=== PATIENT | female | born 1995 | race Two or more races ===

== ENCOUNTER 2025-04-07 05:40 | Observation (INO) | payer OTHER, SELFPAY ==
[2025-04-07] VITALS (19 sets, daily range): BP systolic 97–104; BP diastolic 56–59; PULSE 70–81; RESP 17–98; TEMP 36.7; O2SAT 98–100; BMI 24.5
--- NOTE | 2025-04-07 07:02 | XR_ITS ---
Examination: Complete OB ultrasound greater than 14 weeks, twin A Date and time of exam: April 07, 2025, 0709 hrs. Indications: Pelvic contractions today Findings: Viable intrauterine gestation, twin A presentation transverse Cardiac motion 167 BPM Placenta anterior grade 3 Umbilical cord insertion seen Amniotic fluid index 17 cm Cervix 3.1 cm Ovaries obscured by bowel gas. Composite estimated gestational age based on BPD, head circumference, abdominal circumference, femur length is 34 weeks 0 days Estimated weight 2252.6 g. Survey of intracranial anatomy, spinal anatomy, abdominal anatomy, four-chamber heart performed with no abnormalities identified. Impression: Viable twin A, transverse presentation, head left lower abdomen Estimated gestational age 34 weeks 0 days. Examination: Complete OB ultrasound greater than 14 weeks, twin B Date and time of exam: April 07, 2025, 0850 hrs. Indications: Pelvic contractions today Findings: Viable twin B, transverse presentation Cardiac motion 176 BPM Placenta anterior grade 3 Umbilical cord insertion seen Amniotic fluid index 17 cm Ovaries obscured by bowel gas Composite estimated gestational age based on BPD, head circumference, abdominal circumference, femur length is 35 weeks 1 day Estimated weight 2536.7 g. Survey of intracranial anatomy, spinal anatomy, abdominal anatomy, four-chamber heart performed with no abnormalities identified. Impression: Viable twin B transverse presentation head right upper abdomen.
[2025-04-07] MEDS: BETAMET ACET/BETAMET NA PH (Celestone) 6 MG/ML VIAL 12 MG IM (08:16)
== END 2025-04-07 08:28 | disposition home or self-care (01) ==
PROVIDERS: Admitting Provider Specialist; Visit Provider Specialist
DX: O26.893 Other specified pregnancy related conditions, third trimester (principal); Z3A.34 34 weeks gestation of pregnancy; R10.30 Lower abdominal pain, unspecified; O32.2XX1 Maternal care for transverse and oblique lie, fetus 1; O32.2XX2 Maternal care for transverse and oblique lie, fetus 2; O30.003 Twin pregnancy, unspecified number of placenta and unspecified number of amniotic sacs, third trimester
CPT/HCPCS: 59899; 76805; 76810; 96372; J0702

== ENCOUNTER 2025-04-08 08:30 | Outpatient (CLI) | payer OTHER, SELFPAY ==
[2025-04-08 09:07] VITALS: BP 106/58; PULSE 73; RESP 16; RESP 98; TEMP 36.7; BMI 24.5
[2025-04-08 09:08] VITALS: RESP 16; TEMP 36.7; O2SAT 98
[2025-04-08] MEDS: BETAMET ACET/BETAMET NA PH (Celestone) 6 MG/ML VIAL 12 MG IM (09:28)
== END 2025-04-08 09:30 | disposition home or self-care (01) ==
LOC: CNST 08:37 → S4SX 08:37
PROVIDERS: Referring Provider Specialist; Visit Provider Specialist
DX: O30.003 Twin pregnancy, unspecified number of placenta and unspecified number of amniotic sacs, third trimester (principal); Z3A.34 34 weeks gestation of pregnancy
CPT/HCPCS: 96372; J0702

== ENCOUNTER 2025-05-01 08:04 | Outpatient (RCR) | payer OTHER, SELFPAY ==
[2025-04-18 16:13] VITALS: BP 99/56; PULSE 80; RESP 16; TEMP 37
[2025-04-24 08:22] VITALS: BP 95/53; PULSE 82; RESP 20; TEMP 36.4
[2025-05-01 08:30] VITALS: BP 112/60; PULSE 84; RESP 16
== END 2025-05-01 23:59 | disposition home or self-care (01) ==
LOC: S4S1 08:04
PROVIDERS: Referring Provider Specialist; Visit Provider Specialist
DX: O30.043 Twin pregnancy, dichorionic/diamniotic, third trimester (principal); Z3A.37 37 weeks gestation of pregnancy
CPT/HCPCS: 59025

== ENCOUNTER 2025-05-02 07:42 | Inpatient (IN) | payer OTHER, SELFPAY ==
[2025-05-02] VITALS (48 sets, daily range): BP systolic 102–115; BP diastolic 55–73; PULSE 68–116; RESP 20; TEMP 36.4–37.1; O2SAT 89–100; BMI 26.8
--- NOTE | 2025-05-02 07:56 | XR_ITS ---
EXAMINATION: age Limited INDICATIONS: Twin gestations, labor evaluation and induction today, unknown presentation Date and time: May 02, 2025, 0813 hours FINDINGS: Twin intrauterine gestations Baby A cephalic presentation, cardiac motion 140 bpm Baby B cephalic presentation cardiac motion 138 bpm IMPRESSION: Twin gestations as above
--- NOTE | 2025-05-02 08:56 | PD.LDPN ---
Documentation for date of: 05/02/25 OB Labor Progress Note Pelvic Exam Comments: see RN notes Contractions Contraction frequency: irregular and infrequent Status status: Category l Comments: for both Twin A and B Assessment and Plan Comments: Cervidil cervical ripening Reviewed with patient , her RN , municipal engineer and BUFFING LINE SET UP WORKER to make sure we have the resources for double set up delivery in an OR setting. This will require coordinating care with the Surgery Dept downstairs should the C/S Suite be occuppied at the time the patient delivers. I urged the municipal engineer to do her best to send all C/S downstairs and to keep the C/S Suite on the 4th floor clear and ready for the double set up when the patient gets active. We will have 2 u pRBCs available and two large bore IVs. Pt verbalized understanding of the plan and all questions answered. History of Present Illness HPI Baby A and B are Cephalic by US today.
[2025-05-02] MEDS: RINGERS LACTATED 1000 ML 1,000 ML 100 ML IV ×3 (09:30→23:21)
[2025-05-02 09:52] LABS: Basophils # (Auto) 0.0 Thou/mm3 (0.0-0.2); Basophils % (Auto) 0 % (0-2.5); Eosinophils # (Auto) 0.1 Thou/mm3 (0.0-0.5); Eosinophils % (Auto) 0 % (0-10); Hematocrit 37.6 % (36.0-46.0); Hemoglobin 12.7 g/dL (12.0-16.0); Immature Granulocytes Auto 0.16 Thou/mm3 (0.00-0.00); Lymphocytes # (Auto) 1.4 Thou/mm3 (1.0-4.8); Lymphocytes % (Auto) 13 % (10-50); Mean Corpuscular HGB Conc 33.8 g/dl (31.0-37.0); Mean Corpuscular Hemoglobin 31.5 pg (25.0-35.0); Mean Corpuscular Volume 93 fL (80-100); Monocytes # (Auto) 0.6 Thou/mm3 (0.0-0.8); Monocytes % (Auto) 6 % (0-12); Neutrophils # (Auto) 8.9 Thou/mm3 (1.8-7.7); Neutrophils % (Auto) 80 % (37-80); Nucleated Red Blood Cell # 0.00 Thou/mm3 (0.00-0.00); Nucleated Red Blood Cell % 0 /100 WBC (0); Platelet Count 184 Thou/mm3 (140-440); RDW Standard Deviation 44.0 fL (36.4-46.3); Red Blood Count 4.03 Miln/mm3 (4.00-5.20); White Blood Count 11.2 Thou/mm3 (3.6-11.0)
[2025-05-02 10:39] LABS: Syphilis Nonreactive (Nonreactive)
--- NOTE | 2025-05-02 11:48 | PD.LDHP ---
Documentation for date of: 05/02/25 OB Labor/Induct. HPI History of Present Illness : 3 Term pregnancies: 2 pregnancies: 0 Living children: 2 History of Abortions: Spontaneous and Elective: 0 History of sections: No History of : No TATA: 05/16/25 Gestational Age (weeks): 38 Gestational Age (days): 0 History of present illness: Baby A and B are Cephalic by US today. Comments: H and P dictated in Nuance on the STAT line #9: [id number] Labs Labs: Negative: RPR, Hepatitis B, Rubella Titre, HIV, Chlamydia, Gonorrhea and Group Beta Strep and Unknown: Herpes Type 1, Herpes Type 2 and Covid-19 Past Medical History Surgical History SURGICAL: Negative Section Meds Home Medications and Allergies Home Medications ?Medication ?Instructions ?Recorded ?Confirmed ?Type aspirin 81 mg tablet,delayed 81 mg PO DAILY 04/07/25 04/08/25 History release ferrous sulfate 325 mg (65 mg 325 mg PO EVERYOTHERDAY 04/07/25 04/08/25 History iron) tablet folic acid 1 mg tablet 1 mg PO DAILY 04/07/25 04/08/25 History Allergies Allergy/AdvReac Type Severity Reaction Status Date / Time No Known Drug Allergies Allergy Verified 04/08/25 09:02 OB Exam Physical Exam Vital signs: Pulse BP 76 108/62 05/02/25 11:46 05/02/25 11:46 OB Results Labs 05/02/25 09:45 Labs: Short CBC 05/02/25 Range/Units 09:45 WBC 11.2 H (3.6-11.0) Thou/mm3 Hgb 12.7 (12.0-16.0) g/dL Hct 37.6 (36.0-46.0) % Plt Count 184 (140-440) Thou/mm3
--- NOTE | 2025-05-02 15:05 | ESHP_ITS ---
RE: STEPHANIE MORALES : 1995 DATE OF ADMISSION: 05/02/2025 HISTORY OF PRESENT ILLNESS: This is a 29-year-old 3, para 2-0-0-2 with due date of 05/16 with intrauterine at 38 weeks and 0 days who presents for induction of labor. The patient has dichorionic diamniotic twin gestation showing adequate interval growth throughout her and demonstrating reassuring antepartum testing. Her ultrasound today shows both babies are cephalic. Patient received betamethasone on 04/07 and 04/08. She denies any leaking or bleeding. She reports normal movements. She has occasional contractions. She prefers to have a trial of vaginal delivery. Her care was uncomplicated. She gained 45 pounds. The growth between the two twins is concordant. ALLERGIES: NO KNOWN DRUG ALLERGIES. MEDICATIONS: 1. multivitamin 1 p.o. daily. 2. Ferrous sulfate 325 mg 1 p.o. every other day. 3. Aspirin 81 mg 1 p.o. daily. 4. Folic acid 1 mg 1 p.o. daily. 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 RH negative. FAMILY HISTORY: Denies. PAST OB HISTORY: In 2020, 39-week normal vaginal delivery, 8 pound 7 ounce male, no complications; in 2022, 39-week normal vaginal delivery, 9 pound female, no complications. PAST SURGICAL HISTORY: Denies. REVIEW OF SYSTEMS: She denies any chest pain, palpitations, cough, fever, shortness of breath, or lower extremity pain. She denies any headache, change in vision, or right upper quadrant pain. PHYSICAL EXAMINATION: VITAL SIGNS: Blood pressure is 110/61. Heart rate 88. Respiration 18. Temperature is 98.6. Weight 168 pounds. HEENT: Oropharynx and sclerae clear. LUNGS: Clear to auscultation bilaterally. HEART: Regular rate and rhythm. ABDOMEN: Gravid, term size. Fundus at 44 cm. heart tones for both twins obtained. Category 1 tracing for both. Cephalic/cephalic by ultrasound today. Estimated weights 5.5 to 6 pounds for each. PELVIC: See RN notes. EXTREMITIES: Nontender. SKIN: No gross rashes or lesions. NEUROLOGIC: No focal deficit. ASSESSMENT AND PLAN: Intrauterine at 38 weeks and 0 days, diamniotic dichorionic twin gestation in the vertex/vertex presentation. Induction of labor. Anticipate spontaneous vaginal delivery. Informed consent was obtained. The patient was made aware of the risks, complications, alternatives, and benefits of operative vaginal delivery and delivery. The patient desires trial of induction for vaginal delivery and she currently declines a delivery although she knows she has the right to request a delivery at any time. We had an in-depth discussion regarding the indication for induction, dichorionic twins at term, and the associated risks and benefits. The patient understands the potential complications of induction agents including oxytocin and misoprostol and Cervidil and consents to proceed. I have reviewed the increased risk of hemorrhage, particularly due to uterine atony from prolonged labor, extended oxytocin exposure or sometimes just due to twin gestation. We also discussed the potential need for blood transfusion and she agrees. She understands the risks and complications of blood transfusion. The delivery plan includes a double setup in the operating room. The patient will have an epidural placed prior to entering the operating room as she progresses and begins second stage labor. Twin A will be delivered in the OR with a surgical team present. We will closely monitor twin B to ensure assuming a vertex presentation. I explained that to the patient that malpresentation of twin B or non-reassuring heart tones (category 2 to 3 tracings) may necessitate emergency delivery. Given that [facility] is a smaller facility, I explained that there may be rare circumstances where an OR or anesthesiologist is unavailable for a double setup. To mitigate this, we will coordinate with the OB and surgical teams to ensure OR availability at the time of the delivery. The patient understands that an epidural is preferred to facilitate a controlled delivery and avoid general anesthesia if emergency delivery becomes necessary. She is aware of the right to request a again at any time and she agrees. All questions answered. DT: 11:45:52 TT: 12:51:00 Ref: [id number] - TID: [id number]
[2025-05-03] VITALS (101 sets, daily range): BP systolic 94–124; BP diastolic 54–80; PULSE 63–109; RESP 16–18; TEMP 36.6–37.3; O2SAT 94–100
[2025-05-03] MEDS: RINGERS LACTATED 1000 ML 1,000 ML 100 ML IV (01:50)
[2025-05-03] MEDS: OXYTOCIN in NS 20 units 20 UNIT/1,000 ML BAG 999 UNIT IV (06:47)
[2025-05-03] MEDS: BENZO/LANO/ALOE (Dermoplast) 60 GM CAN 1 SPRAY TOP (06:47)
[2025-05-03] MEDS: CARBOPROST TROMETH INJ 250 MCG/ML VIAL IM (07:34)
[2025-05-03] MEDS: METHYLERGONOVINE INJ 0.2 MG/ML VIAL IM (07:37)
[2025-05-03] MEDS: DIPHENOXYLATE/ATROP SULF 1 TAB PO (08:04)
[2025-05-03] MEDS: IBUPROFEN TAB 400 MG TABLET 800 MG PO ×2 (09:10→20:50)
--- NOTE | 2025-05-03 10:08 | PC.NURSE ---
0728: Dr. Flannery called and updated on pt. status. Moderate amount (gush) of blood with each fundal. Orders received to administer ordered methergine, hemabate, and order lomotil x1 tab.
[2025-05-03 11:57] LABS: Basophils # (Auto) 0.0 Thou/mm3 (0.0-0.2); Basophils % (Auto) 0 % (0-2.5); Eosinophils # (Auto) 0.0 Thou/mm3 (0.0-0.5); Eosinophils % (Auto) 0 % (0-10); Hematocrit 35.2 % (36.0-46.0); Hemoglobin 12.4 g/dL (12.0-16.0); Immature Granulocytes Auto 0.12 Thou/mm3 (0.00-0.00); Lymphocytes # (Auto) 1.1 Thou/mm3 (1.0-4.8); Lymphocytes % (Auto) 6 % (10-50); Mean Corpuscular HGB Conc 35.2 g/dl (31.0-37.0); Mean Corpuscular Hemoglobin 32.8 pg (25.0-35.0); Mean Corpuscular Volume 93 fL (80-100); Monocytes # (Auto) 0.7 Thou/mm3 (0.0-0.8); Monocytes % (Auto) 4 % (0-12); Neutrophils # (Auto) 17.5 Thou/mm3 (1.8-7.7); Neutrophils % (Auto) 90 % (37-80); Nucleated Red Blood Cell # 0.00 Thou/mm3 (0.00-0.00); Nucleated Red Blood Cell % 0 /100 WBC (0); Platelet Count 169 Thou/mm3 (140-440); RDW Standard Deviation 43.3 fL (36.4-46.3); Red Blood Count 3.78 Miln/mm3 (4.00-5.20); White Blood Count 19.4 Thou/mm3 (3.6-11.0)
[2025-05-03] MEDS: ACETAMINOPHEN 325 MG TABLET 650 MG PO ×2 (16:22→22:42)
--- NOTE | 2025-05-04 03:28 | PD.LDDELA1 ---
Data (Multiple) Data Hx Section: No : 3 Term: 2 : 0 Livin Abortions: Spontaneous & Theraputic: 0 Delivery Data A Labor Data Initiation of labor: Induction Induction/Augmentation Agent: Cervidil ROM date: 05/03/25 ROM time: 04:15 Amniotic membrane rupture type: Spontaneous Amniotic fluid description: Particulate Meconium Delivery Data EDC: 05/16/25 EDC calculated by:: LMP/early US confirmation Onset of labor date: 05/03/25 Onset of labor time: 01:45 Complete dilation date: 05/03/25 Complete dilation time: 04:22 delivery date: 05/03/25 delivery time: 05:43 Gestational age (weeks): 38 Gestational age (days): 2 Placenta delivery date: 05/03/25 Placenta delivery time: 05:50 Delivered by: Luis Alberto Flannery Support person(s) at delivery: Significant other Other staff at delivery: Juana Staton, CAROL Maldonado, JOSE ALBERTO Viveros Delivery Method Delivery method: Normal Vaginal Delivery Presentation: Vertex Anesthesia Type Anesthesia Type: Epidural Placenta Placenta delivery description: Spontaneous Placenta Disposition: Sent to Pathology Placenta disposition: Sent to Pathology Cord blood sent to lab: Yes cord blood collection: Cord Blood Type Episiotomy Episiotomy description: None Lacerations #1: Perineal: 2nd degree Perineal repair Sutures used for repair: 3.0 Chromic EBL Estimated blood loss (ml): 200 Umbilical Cord cord description: 3 Vessels Complications Complications: None Data A [place] Data order: 1 length: 18.5 in
--- NOTE | 2025-05-04 03:31 | OBDSUM_ITS ---
Data (Multiple) Data Hx Section: No : 3 Term: 2 : 0 Livin Abortions: Spontaneous & Theraputic: 0 Delivery Data B Labor Data Initiation of labor: Induction Induction/Augmentation Agent: Cervidil ROM date: 05/03/25 ROM time: 05:47 Amniotic membrane rupture type: Artificial Amniotic fluid description: Moderate Meconium Delivery Data EDC: 05/16/25 EDC calculated by:: LMP/early US confirmation Gestational age (weeks): 38 Gestational age (days): 2 Onset of labor date: 05/03/25 Onset of labor time: 01:45 Complete dilation date: 05/03/25 Complete dilation time: 04:22 [place] delivery date: 05/03/25 [place] delivery time: 05:48 Placenta delivery date: 05/03/25 Placenta delivery time: 05:50 Stage 1 total time (B): Labor - Stage 1 Duration 2 hours and 37 minutes Stage 2 total time (B): Labor - Stage 2 Duration 1 hours and 26 minutes Stage 3 total time (B): Labor - Stage 3 Duration 2 minutes Delivered by: Bonifacio Zhou Delivery nurse: Macy Eaton RN nurse: Snow Vargas RN Respiratory therapist(s) at delivery: Yes (Salma La) Sales Manager [place] at delivery: Yes (Winnie) Support person(s) at delivery: Significant other Delivery Method Delivery method: Normal Vaginal Delivery Presentation: Vertex position: OA Anesthesia Type Anesthesia Type: Epidural Placenta Placental delivery description: Spontaneous Placenta Disposition: Sent to Pathology Cord blood sent to lab: Yes cord blood collection: Cord Blood Type Episiotomy Episiotomy description: None Lacerations #1: Perineal: 2nd degree Perineal repair Sutures used for repair: 3.0 Chromic EBL Estimated blood loss (ml): 200 Umbilical Cord cord description: 3 Vessels and Around Body Complications Complications: None Data B Data order: 2 length: 20 in
[2025-05-04 04:05] VITALS: BP 93/57; PULSE 64; RESP 16; TEMP 36.9; O2SAT 96
[2025-05-04] MEDS: IBUPROFEN TAB 400 MG TABLET 800 MG PO (06:40)
--- NOTE | 2025-05-04 07:11 | ESPR_ITS ---
RE: STEPHANIE MORALES : 1995 DATE OF SERVICE: 05/04/2025 SUBJECTIVE: day #1. Patient denies any problem or complaints. OBJECTIVE: Vital Signs: Blood pressure 93/57, heart rate 64, respiration 16, temperature is 98.4, pulse ox is 96% on room air. Lungs: Clear to auscultation bilaterally. Heart: Regular rate and rhythm. Abdomen: Fundus is firm. Extremities: Nontender. LABORATORY DATA: Hemoglobin pre-delivery is 12.7, post delivery is 12.4. ASSESSMENT: day #1 status post spontaneous vaginal delivery, twin gestation. PLAN: Discharge home. Discharge instructions given. Follow up in the office in 6 weeks. DT: 06:59:18 TT: 07:10:00 Ref: [id number] - TID: [id number]
[2025-05-04 07:35] VITALS: BP 95/60; PULSE 76; RESP 16; TEMP 36.5; O2SAT 97
[2025-05-04 11:36] VITALS: BP 94/60; PULSE 77; RESP 16; TEMP 36.9; O2SAT 97
[2025-05-04] MEDS: ACETAMINOPHEN 325 MG TABLET 650 MG PO (12:10)
[2025-05-04 12:11] VITALS: BP 96/60; PULSE 79; RESP 18; TEMP 36.7; O2SAT 97
== END 2025-05-04 13:40 | disposition home or self-care (01) | DRG 807 ==
LOC: S4SX 05-03 06:20 → S4NX 05-03 09:48
PROVIDERS: Admitting Provider Specialist; Visit Provider Specialist
DX: O30.043 Twin pregnancy, dichorionic/diamniotic, third trimester (principal); Z37.2 Twins, both liveborn; Z3A.38 38 weeks gestation of pregnancy; O70.1 Second degree perineal laceration during delivery; O76 Abnormality in fetal heart rate and rhythm complicating labor and delivery; O77.0 Labor and delivery complicated by meconium in amniotic fluid; O32.9XX2 Maternal care for malpresentation of fetus, unspecified, fetus 2
CPT/HCPCS: 36415; 76815; 85025; 85461; 86780; 86850; 86870; 86900; 86901; 86920; 90707; J2210; J2590; J2704; J2790; J2795; J3010; J3490; J7120; S0191; A9270